=== PATIENT | male | born 1995 | race Caucasian/White ===

== ENCOUNTER 2018-01-08 13:33 | Emergency (ER) | payer OTHER ==
[~2018-01-08] VITALS: Ht 177.8 cm; Wt 68.5 kg
[~2018-01-08 13:33] MED LIST: HYDROXYZINE HCL25 M1 PO; NOHOMEMEDICATIONS
[2018-01-08 14:58] LABS: HEMATOCRIT 42.6 % (42.0-52.0); HEMOGLOBIN 13.8 gm/dL (14.0-18.0); MCH 25.4 pg (26.0-34.0); MCHC 32.5 g/dL (28.0-37.0); MPV 9.3 fl. (7.2-11.1); RBC 5.46 mil/uL (4.50-6.00); RDW-CV 13.1 % (10.5-14.5); WBC 5.4 thou/uL (4.0-11.0)
[2018-01-08 15:15] LABS: CALCIUM 9.2 mg/dL (8.5-10.1); POTASSIUM 3.9 mmol/L (3.5-5.1)
[2018-01-08 15:25] LABS: ALBUMIN 4.2 g/dL (3.4-5.0); TOTAL BILIRUBIN 0.2 mg/dL (<0.1-1.0); TOTAL PROTEIN 7.7 g/dL (6.4-8.2)
[2018-01-08] MEDS ORDERED: AMITRIPTYLINE H25 M2 PO (15:27)
[2018-01-08 15:42] VITALS: BP 127/72
--- NOTE | 2018-01-08 17:12 | EKG ---
[place] [address] ELECTROCARDIOGRAM REPORT Name: YOSELINLEYDI Dodson Room: [facility]#: [id number] Admission: 01/08/18 Attend Phys: Discharge: 01/08/18 Date of : [birth year] Report #: [id number] THIS REPORT FOR: //name// [facility] ED Test Date: 2018-01-08 Test Time: 13:38:47 Pat Name: LEYDI WYATT Department: Room: Gender: Facilities Specialist: Megan HONG : 1995 Requested By: Ramona Unger Order Number: [id number] Gwen MD: Leydi Rodarte Measurements Intervals [place] Rate: 106 P: 71 WI: 158 QRS: 73 QRSD: 87 T: 4 QT: 327 QTc: 435 Interpretive Statements Sinus tachycardia Left atrial enlargement Borderline T abnormalities, inferior leads Compared to ECG 06/28/2012 00:32:34 T-wave abnormality now present Incomplete right bundle-branch block no longer present Electronically Signed On 01-08-2018 17:12:12 CDT by Leydi Rodarte [email or web address] <ELECTRONICALLY SIGNED> By: Leydi Rodarte MD, [facility] 01/08/18 1712 1338 37 Leydi Rodarte MD, FAC /EPI
== END 2018-01-08 15:46 | disposition home or self-care (01) ==
LOC: M.ERS 13:33
PROVIDERS: Personal Emergency Response Attendant
DX: F41.1 Generalized anxiety disorder (principal)

== ENCOUNTER 2021-05-19 08:24 | Emergency (ER) | payer OTHER ==
[~2021-05-19] VITALS: Ht 175.3 cm; Wt 63.5 kg
[~2021-05-19 08:24] MED LIST changes: +AMITRIPTYLINE H25 M2 PO
[2021-05-19 09:38] LABS: ABSOLUTE BASOPHILS 0.1 thou/uL (0.0-0.2); ABSOLUTE EOSINOPHILS 0.2 thou/uL (0.0-0.7); ABSOLUTE LYMPHOCYTES 1.9 thou/uL (0.8-5.3); ABSOLUTE MONOCYTES 0.6 thou/uL (0.0-1.2); ABSOLUTE NEUTROPHILS 5.7 thou/uL (1.6-8.1); BASOPHILS 0.9 %; EOSINOPHILS 2.1 %; HEMOGLOBIN 14.9 gm/dL (14.0-18.0); LYMPHOCYTES 22.4 %; MCH 25.2 pg (26.0-34.0); MCHC 32.4 g/dL (28.0-37.0); MCV 77.8 fL (80.0-100.0); MONOCYTES 7.5 %; MPV 9.5 fl. (7.2-11.1); NUCLEATED RBCS 0 /100WBC; PLATELET COUNT* 223 thou/uL (150-400); POLYS 67.1 %; RBC 5.92 mil/uL (4.50-6.00); RDW-CV 13.4 % (10.5-14.5); WBC 8.5 thou/uL (4.0-11.0)
[2021-05-19 09:56] LABS: CREATININE 1.1 mg/dL (0.6-1.3); POTASSIUM 3.9 mmol/L (3.5-5.1)
[2021-05-19 10:06] LABS: ALBUMIN 4.5 g/dL (3.4-5.0); MAGNESIUM 2.2 mg/dL (1.8-2.4); TOTAL BILIRUBIN 0.5 mg/dL (<0.1-1.0); TOTAL PROTEIN 7.8 g/dL (6.4-8.2)
--- NOTE | 2021-05-19 12:48 | EKG ---
[place] [address] ELECTROCARDIOGRAM REPORT Name: LEYDI WYATT I Room: [facility]#: [id number] Admission: 05/19/21 Attend Phys: Discharge: Date of : [birth year] Date of Service: 05/19/2129 Report #: [id number] THIS REPORT FOR: //name// [facility] ED Test Date: 2021-05-19 Test Time: 08:29:21 Pat Name: LEYDI WYATT Department: Room: Gender: M [employer]ing [employer] Operator: : 1995 Requested By: Rosas Magdaleno Order Number: [id number] MD: Leydi Rodarte Measurements Intervals [place] Rate: 105 P: 74 TN: 165 QRS: 75 QRSD: 92 T: 42 QT: 329 QTc: 435 Interpretive Statements Sinus tachycardia Ventricular trigeminy Probable left atrial enlargement Compared to ECG 01/08/2018 13:38:47 Ventricular premature complex(es) now present T-wave abnormality no longer present Electronically Signed On 05-19-2021 12:47:48 CATTLE EXAMINER by Leydi Rodarte [email or web address] <ELECTRONICALLY SIGNED> By: Leydi Rodarte MD, [facility] 05/19/21 1247 0829 0829 Leydi Rodarte MD, [facility] /EPI
[2021-05-19 13:14] VITALS: BP 134/81
== END 2021-05-19 13:16 | disposition home or self-care (01) ==
LOC: M.ERS 08:24
PROVIDERS: Emergency Medicine Emergency Medical Services
DX: R00.2 Palpitations (principal); Z88.8 Allergy status to other drugs, medicaments and biological substances; Z88.6 Allergy status to analgesic agent